=== PATIENT | male | born 1985 | race Hispanic/Latino ===

== ENCOUNTER 2017-12-23 22:06 | Emergency (ER) | payer OTHER ==
[2017-12-23] MEDS ORDERED: ACETAMINOPHEN-CODEINE ELIXIR 5 ML UDCUP ONE (22:31)
== END 2017-12-23 23:16 | disposition home or self-care (01) ==
LOC: EDH 22:06
DX: S40.812A Abrasion of left upper arm, initial encounter (principal); V49.49XA Driver injured in collision with other motor vehicles in traffic accident, initial encounter; Y93.89 Activity, other specified; Y92.89 Other specified places as the place of occurrence of the external cause; Y99.8 Other external cause status